=== PATIENT | female | born 1960 | race Two or more races ===

== ENCOUNTER 2023-11-01 16:50 | Emergency (ER) | payer OTHER ==
[~2023-11-01] VITALS: Ht 149.9 cm; Wt 61.4 kg
[2023-11-01 17:03] VITALS: TEMP 98.2
[2023-11-01] MEDS ORDERED: IBUP-2077 PO ×2 (20:23→21:08)
[2023-11-01] MEDS ORDERED: SIMV-46 PO ×2 (20:23→21:08)
[2023-11-01] MEDS ORDERED: LEVO88TA7 PO ×2 (20:23→21:08)
[2023-11-01 20:42] LABS: BASOPHILS % (AUTO) 0.3 % (0.0-2.0); EOSINOPHILS % (AUTO) 1.2 % (1.0-6.0); HEMATOCRIT 41.7 % (36-46); HEMOGLOBIN 13.8 g/dL (12.0-16.0); LYMPHOCYTES # (AUTO) 2.7 K/uL (1.0-4.8); LYMPHOCYTES % (AUTO) 23.3 % (22.0-44.0); MEAN CORPUSCULAR HEMOGLOBIN 32.4 pg (26.0-34.0); MEAN CORPUSCULAR HGB CONC 33.1 G/dL (31.0-37.0); MEAN CORPUSCULAR VOLUME 98 fL (80-100); MONOCYTES # (AUTO) 0.7 K/uL (0.1-1.0); MONOCYTES % (AUTO) 6.1 % (2.0-9.0); NEUTROPHILS # (AUTO) 7.9 K/uL (1.8-7.7); NEUTROPHILS % (AUTO) 69.1 % (40.0-70.0); PLATELET COUNT (AUTO) 269 K/uL (150-450); RED BLOOD CELL COUNT(AUTO) 4.25 MIL/uL (4.00-5.20); RED CELL DISTRIBUTION WIDTH 16.7 % (11.5-14.5); WHITE BLOOD COUNT (AUTO) 11.5 K/uL (4.5-11.0)
[2023-11-01 20:46] LABS: ANION GAP 8 mmol/L (8-16); CALCIUM, TOTAL 8.7 mg/dL (8.8-10.5); CARBON DIOXIDE 29 mmol/L (22-29); CHLORIDE 104 mmol/L (98-107); CREATININE 0.76 mg/dL (0.60-1.30); GLOMERULAR FILTR. RATE CALC > 60 mL/min (>60); GLUCOSE,RANDOM 80 mg/dL (70-110); POTASSIUM 3.8 mmol/L (3.5-5.1); SODIUM SERUM 141 mmol/L (136-145); UREA NITROGEN, BLOOD 16 mg/dL (7-18)
[2023-11-01] MEDS ORDERED: METH-659 PO (21:08)
[2023-11-01] MEDS ORDERED: HYDR30CR3 TP (21:08)
[2023-11-01 21:24] VITALS: BP 160/92; PULSE 86; RESP 18
== END 2023-11-01 21:50 | disposition home or self-care (01) ==
LOC: EMS 16:50
DX: L30.9 Dermatitis, unspecified (principal); G89.29 Other chronic pain; M54.50 Low back pain, unspecified; E78.00 Pure hypercholesterolemia, unspecified; I10 Essential (primary) hypertension; E03.9 Hypothyroidism, unspecified; F17.210 Nicotine dependence, cigarettes, uncomplicated; F12.90 Cannabis use, unspecified, uncomplicated; Z98.890 Other specified postprocedural states; Z86.39 Personal history of other endocrine, nutritional and metabolic disease
CPT/HCPCS: 80048; 85025; 99283

== ENCOUNTER → 2024-12-17 | Outpatient (CLI) | payer MEDICARE, MEDICAID ==
[~2024-12-17] VITALS: Ht 152.4 cm; Wt 54.7 kg
[~2024-12-17] MED LIST: ACET-2247 PO; AMLO10TA55 PO; ATOR10TA69 PO; BISA-151 PO; CETI10TA77 PO; CYAN500T56 PO; DIVA-153 PO; HYDR-4061 PO; LEVO88TA4 PO; MAGN800O2 PO; MELO-106 PO; MELO-107 PO; OXYB15TA19 PO; PANT-31 PO; PIPE3.3772 IV; RISP4TAB94 PO; SPIR-37 PO; VANC1PLA9 IV; ZOLP-280 PO
[2024-12-17 11:16] VITALS: BP 145/61; PULSE 72; RESP 15; TEMP 97.9; O2SAT 100
== END | disposition home or self-care (01) ==
LOC: SRCNTR 10:48
PROVIDERS: ATTEND Internal Medicine
DX: I10 Essential (primary) hypertension (principal); R32 Unspecified urinary incontinence; D64.9 Anemia, unspecified; E03.9 Hypothyroidism, unspecified; E78.5 Hyperlipidemia, unspecified; F99 Mental disorder, not otherwise specified; R56.9 Unspecified convulsions; Z79.899 Other long term (current) drug therapy; Z87.440 Personal history of urinary (tract) infections; Z88.2 Allergy status to sulfonamides
CPT/HCPCS: G0463